=== PATIENT | female | born 1995 | race American Indian/Alaskan Native ===

== ENCOUNTER 2021-09-10 14:09 | Emergency (ER) | payer SELFPAY ==
[2021-09-10 14:57] VITALS: BP 109/81
--- NOTE | 2021-09-10 15:11 | Emergency Department Report ---
ED Lower Extremity HPI - General Chief Complaint: Extremity Injury, Lower Stated Complaint: GLASS STUCK IN LT FOOT Time Seen by Provider: 09/10/21 15:06 Source: patient Mode of arrival: Ambulatory Limitations: No Limitations - History of Present Illness Initial Comments: Patient is a 26-year-old female that comes to the ER after stepping on glass 2 weeks ago. She thinks that there is still a piece of glass in her foot. She reports pain when walking. I see a puncture point but I see no foreign body. I explained to the patient that we will not explore her foot in the emergency room. An x-ray was done that showed no foreign body. Tdap is up-to-date MD Complaint: other -: Sudden Place: home Severity: mild Context: other - Related Data Home Medications Medication Instructions Recorded Confirmed Last Taken No Known Home Medications [No 09/10/21 09/10/21 Unknown Reported Home Medications] Allergies Allergy/AdvReac Type Severity Reaction Status Date / Time No Known Allergies Allergy Unverified 09/10/21 15:35 ED Review of Systems ROS: Stated complaint: GLASS STUCK IN LT FOOT Other details as noted in HPI Comment: All other systems reviewed and negative ED Past Medical Hx - Past Medical History Previous Medical History?: No - Surgical History Past Surgical History?: No - Family History Family history: no significant - Social History Smoking Status: Never Smoker Substance Use Type: None - Medications Home Medications: Home Medications Medication Instructions Recorded Confirmed Last Taken Type No Known Home Medications [No 09/10/21 09/10/21 Unknown History Reported Home Medications] ED Physical Exam - General Limitations: No Limitations General appearance: alert, in no apparent distress - Head Head exam: Present: atraumatic, normocephalic - Eye Eye exam: Present: normal appearance - ENT ENT exam: Present: mucous membranes moist - Neck Neck exam: Present: normal inspection - Respiratory Respiratory exam: Present: normal lung sounds bilaterally. Absent: respiratory distress - Cardiovascular Cardiovascular Exam: Present: regular rate, normal rhythm. Absent: systolic murmur, diastolic murmur, rubs, gallop - GI/Abdominal GI/Abdominal exam: Present: soft, normal bowel sounds - Extremities Exam Extremities exam: Present: normal inspection - Back Exam Back exam: Present: normal inspection - Neurological Exam Neurological exam: Present: alert, oriented X3 - Psychiatric Psychiatric exam: Present: normal affect, normal mood - Skin Skin exam: Present: warm, dry, intact, normal color, other (Puncture wound to the bottom of her foot). Absent: rash ED Course Vital Signs 09/10/21 14:54 Temperature 98.7 F Pulse Rate 77 Respiratory 18 Rate Blood Pressure 109/81 [Right] O2 Sat by Pulse 99 Oximetry ED Lower Extremity MDM - Radiology Data Radiology results: report reviewed, image reviewed No foreign body - Medical Decision Making Vital Signs 09/10/21 14:54 Temperature 98.7 F Pulse Rate 77 Respiratory 18 Rate Blood Pressure 109/81 [Right] O2 Sat by Pulse 99 Oximetry X-ray noted. I have educated the patient on foreign body. I have encouraged her to do warm soaks with Epson salts. If the pain persist she can follow-up with Dr. Robles for exploratory excision of her foot. I explained to her we would not do that in the emergency room because of the risk of infection. Patient is ambulatory and neurovascularly intact. Patient discharged home with discharge plan of care including diet, activity, medications and follow-up. She has a referral to PCP and GEN sulma. She verbalizes understanding. - Differential Diagnosis Rule out foreign body Critical care attestation.: If time is entered above; I have spent that time in minutes in the direct care of this critically ill patient, excluding procedure time. ED Disposition Clinical Impression: Sensation of foreign body in foot Disposition: 01 HOME / SELF CARE / HOMELESS Is pt being admited?: No Does the pt Need Aspirin: No Condition: Stable Instructions: Foot Pain Additional Instructions: Motrin or Tylenol for pain. If you do have a piece of glass in your foot often times it will work its way to the surface and will fall out. Emergency room's do not remove foreign bodies. If you have ongoing concerns you should follow-up with a general surgeon. I have given you referral to both primary care and general surgery below Referrals: BAM BOLAÑOS MD [Staff Physician] - 3-5 Days JASON ROBLES MD [Staff Physician] - 3-5 Days Time of Disposition: 16:11
--- NOTE | 2021-09-10 15:59 | XRay Report ---
LEFT FOOT 2 VIEW(S) INDICATION / CLINICAL INFORMATION: eval for fb COMPARISON: None available. FINDINGS: BONES / JOINT(S): No acute fracture or dislocation. 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 SOFT TISSUES: No soft tissue gas or radiopaque foreign body identified. ADDITIONAL FINDINGS: None. Signer Name: Dashawn Yanes MD Signed: 09/10/2021 3:54 PM Workstation Name: [id number]
== END 2021-09-11 07:00 | disposition home or self-care (01) ==
LOC: ED 14:09
DX: S90.852A Superficial foreign body, left foot, initial encounter (principal); W22.8XXA Striking against or struck by other objects, initial encounter; Y93.89 Activity, other specified; Y92.89 Other specified places as the place of occurrence of the external cause; Y99.8 Other external cause status
CPT/HCPCS: 99282